=== PATIENT | female | born 1975 | race Caucasian/White ===

== ENCOUNTER 2019-09-15 07:07 | Emergency (ER) | payer BC ==
[~2019-09-15] VITALS: Ht 162.6 cm; Wt 98.9 kg
[2019-09-15 07:14] VITALS: BP 105/66
[2019-09-15] MEDS ORDERED: LIDOCAINE 1%-EPI 1:100,000 20 ML VIAL ONE (07:24)
--- NOTE | 2019-09-15 07:50 | NUR ---
patient came in to the er c/o mid back pain due to boil x 3 days. On room air, breathing evenly and unlabored, kept comfortable, will continue to monitor accordingly.
--- NOTE | 2019-09-15 07:53 | NUR ---
Patient discharged to home in stable condition. Written and verbal after care instructions given. Patient verbalizes understanding of instruction.
[2019-09-15] MEDS ORDERED: LIDOCAINE 1%-EPI 1:100,000 50 ML VIAL IJ ONE (08:00)
== END 2019-09-15 07:53 | disposition home or self-care (01) ==
LOC: ER 07:14
DX: L02.212 Cutaneous abscess of back [any part, except buttock and flank] (principal); Z98.890 Other specified postprocedural states; Z90.49 Acquired absence of other specified parts of digestive tract
CPT/HCPCS: 10060; 76536; 99284; A6253; A6407; J3490